=== PATIENT | female | born 1965 | race Caucasian/White ===

== ENCOUNTER 2018-11-16 20:08 | Emergency (ER) | payer OTHER ==
[~2018-11-16] VITALS: Ht 162.6 cm; Wt 135.2 kg
[2018-11-16 20:20] VITALS: BP 143/91
[2018-11-16 21:50] LABS: ABSOLUTE NEUTROPHILS 6.3 thou/uL (1.4-8.2); BASOPHILS 1.2 % (0.0-2.0); EOSINOPHILS 3.5 % (0.0-3.0); HEMATOCRIT 40.5 % (37.0-47.0); HEMOGLOBIN 13.4 gm/dL (12.0-15.0); LYMPHOCYTES 30.7 % (24.0-44.0); MCH 27.1 pg (26.0-34.0); MCV 82.1 fL (80.0-100.0); MONOCYTES 6.5 % (1.0-8.0); PLATELET COUNT 332 thou/uL (150-400); POLYS 58.1 % (36.0-66.0); RBC 4.93 mil/uL (4.20-5.00); RDW 14.1 % (10.5-14.5); WBC 10.9 thou/uL (4.0-11.0)
[2018-11-16 22:00] LABS: CREATININE 0.6 mg/dL (0.6-1.0); POTASSIUM 4.4 mmol/L (3.5-5.1)
[2018-11-16 22:03] LABS: URIC ACID* 1.9 mg/dL (2.6-7.2)
[2018-11-16] MEDS ORDERED: MOBIC15 MG PO (22:07)
[2018-11-16] MEDS ORDERED: NORCO 5-325 TA1 EAC1 PO (22:07)
[2018-11-16] MEDS ORDERED: KEFLEX500 M1 PO (22:10)
[2018-11-16] MEDS ORDERED: INDOMETHACIN 2525 MG PO (22:15)
[2018-11-16] MEDS ORDERED: COLCHICINE0.6 MG PO (22:17)
== END 2018-11-16 22:25 | disposition home or self-care (01) ==
LOC: ER 20:08
PROVIDERS: Physician Assistant
DX: M11.271 Other chondrocalcinosis, right ankle and foot (principal); L53.9 Erythematous condition, unspecified; J44.9 Chronic obstructive pulmonary disease, unspecified; E11.9 Type 2 diabetes mellitus without complications

== ENCOUNTER 2018-11-19 07:38 | Emergency (ER) | payer OTHER ==
[~2018-11-19] VITALS: Ht 162.6 cm; Wt 135.2 kg
[~2018-11-19 07:38] MED LIST: COLCHICINE0.6 MG PO; INDOMETHACIN 2525 MG PO; KEFLEX500 M1 PO; MOBIC15 MG PO; NORCO 5-325 TA1 EAC1 PO
[2018-11-19 07:39] VITALS: BP 122/82
[2018-11-19] MEDS ORDERED: NORCO 5-325 TA1 EAC1 PO (08:18)
== END 2018-11-19 08:50 | disposition home or self-care (01) ==
LOC: ER 07:38
DX: M72.2 Plantar fascial fibromatosis (principal); M21.41 Flat foot [pes planus] (acquired), right foot; M21.42 Flat foot [pes planus] (acquired), left foot; J44.9 Chronic obstructive pulmonary disease, unspecified; E11.9 Type 2 diabetes mellitus without complications; Z86.718 Personal history of other venous thrombosis and embolism

== ENCOUNTER 2018-12-06 09:06 | Emergency (ER) | payer OTHER ==
[~2018-12-06] VITALS: Ht 162.6 cm; Wt 131.1 kg
[2018-12-06 09:20] VITALS: BP 153/89
== END 2018-12-06 09:45 | disposition home or self-care (01) ==
LOC: ER 09:06
DX: M79.671 Pain in right foot (principal); J44.9 Chronic obstructive pulmonary disease, unspecified; E11.9 Type 2 diabetes mellitus without complications; Z47.2 Encounter for removal of internal fixation device

== ENCOUNTER 2020-01-11 09:44 | Emergency (ER) | payer OTHER ==
[~2020-01-11] VITALS: Ht 154.9 cm; Wt 134.3 kg
[2020-01-11 11:58] VITALS: BP 117/89
== END 2020-01-11 11:59 | disposition home or self-care (01) ==
LOC: ER 09:44
DX: M79.602 Pain in left arm (principal); J44.9 Chronic obstructive pulmonary disease, unspecified; E11.9 Type 2 diabetes mellitus without complications; Z79.899 Other long term (current) drug therapy

== ENCOUNTER 2020-10-02 17:47 | Emergency (ER) | payer BC, OTHER ==
[~2020-10-02] VITALS: Ht 162.6 cm; Wt 133.8 kg
[2020-10-02 17:52] VITALS: BP 144/78
[2020-10-02] MEDS ORDERED: DOXYCYCLINE 10100 MG PO (18:41)
[2020-10-02] MEDS ORDERED: HYDROCODON-ACE1 EAC7 PO (18:41)
== END 2020-10-02 18:42 | disposition home or self-care (01) ==
LOC: ER 17:47
DX: N61.1 Abscess of the breast and nipple (principal); J45.909 Unspecified asthma, uncomplicated; J44.9 Chronic obstructive pulmonary disease, unspecified; E11.9 Type 2 diabetes mellitus without complications; Z98.890 Other specified postprocedural states; Z72.89 Other problems related to lifestyle

== ENCOUNTER 2020-10-04 15:20 | Emergency (ER) | payer BC, OTHER ==
[~2020-10-04] VITALS: Ht 162.6 cm; Wt 133.8 kg
[~2020-10-04 15:20] MED LIST changes: +DOXYCYCLINE 10100 MG PO; +HYDROCODON-ACE1 EAC7 PO
[2020-10-04 17:54] LABS: BASOPHILS 0.4 % (0.0-2.0); EOSINOPHILS 1.9 % (0.0-3.0); HEMOGLOBIN 14.7 gm/dL (12.0-15.0); LYMPHOCYTES 26.8 % (24.0-44.0); MCH 29.2 pg (26.0-34.0); MCHC 33.5 g/dL (28.0-37.0); MCV 87.2 fL (80.0-100.0); MONOCYTES 7.3 % (1.0-8.0); PLATELET COUNT 336 thou/uL (150-400); POLYS 63.6 % (36.0-66.0); RBC 5.05 mil/uL (4.20-5.00); RDW 13.1 % (10.5-14.5); WBC 9.5 thou/uL (4.0-11.0)
[2020-10-04 18:06] LABS: CREATININE 0.7 mg/dL (0.6-1.0); POTASSIUM 4.5 mmol/L (3.5-5.1)
[2020-10-04] MEDS ORDERED: IBU800 MG PO (19:10)
[2020-10-04 19:12] VITALS: BP 152/100
--- NOTE | 2020-10-05 07:11 | EKG ---
[facility] [place] [address] ELECTROCARDIOGRAM REPORT Name: DANIEL OLIVARES [id number] Admission: 10/04/20 Attend Phys: Discharge: 10/04/20 Date of : 69 Report #: [id number] [facility] ED Test Date: 2020-10-04 Test Time: 17:07:58 Pat Name: DANIEL OLIVARES Department: Room: Gender: F [employer] Maker: : 1965 Requested By: Franco Fam Order Number: [id number] MD: Ted Chance Measurements Intervals Purdin Rate: 90 P: 1 NM: 159 QRS: -17 QRSD: 90 T: -13 QT: 350 QTc: 429 Interpretive Statements Sinus rhythm Borderline left axis deviation Low voltage, precordial leads Borderline T abnormalities, inferior leads No previous ECG available for comparison Electronically Signed On 10-05-2020 7:10:56 CDT by Ted Chance [email or web address] <ELECTRONICALLY SIGNED> By: Ted Chance MD, MERGED WITH [facility] 10/05/20 0710 1707 1707 Ted Chance MD, FACC /EPI
== END 2020-10-04 19:12 | disposition home or self-care (01) ==
LOC: ER 15:20
PROVIDERS: Nurse Practitioner
DX: N61.1 Abscess of the breast and nipple (principal); Z01.818 Encounter for other preprocedural examination; E11.9 Type 2 diabetes mellitus without complications; J44.9 Chronic obstructive pulmonary disease, unspecified; Z79.2 Long term (current) use of antibiotics; Z79.899 Other long term (current) drug therapy

== ENCOUNTER 2020-10-16 17:48 | Emergency (ER) | payer BC, OTHER ==
[~2020-10-16] VITALS: Ht 162.6 cm; Wt 134.7 kg
[~2020-10-16 17:48] MED LIST changes: +IBU800 MG PO
[2020-10-16] MEDS ORDERED: PREDNISONE 10 M10 M1 PO (19:34)
[2020-10-16] MEDS ORDERED: CORTIZONE-10 PL28 GM TOP (19:34)
[2020-10-16] MEDS ORDERED: FAMOTIDINE 20 M20 MG PO (19:34)
[2020-10-16 19:45] VITALS: BP 140/88
== END 2020-10-16 19:45 | disposition home or self-care (01) ==
LOC: ER 17:48
DX: L50.0 Allergic urticaria (principal); J44.9 Chronic obstructive pulmonary disease, unspecified; E11.9 Type 2 diabetes mellitus without complications; Z72.89 Other problems related to lifestyle

== ENCOUNTER 2020-10-18 17:16 | Emergency (ER) | payer BC, OTHER ==
[~2020-10-18] VITALS: Ht 162.6 cm; Wt 133.8 kg
[~2020-10-18 17:16] MED LIST changes: +CORTIZONE-10 PL28 GM TOP; +FAMOTIDINE 20 M20 MG PO; +PREDNISONE 10 M10 M1 PO
[2020-10-19 00:15] LABS: HEMATOCRIT 39.2 % (37.0-47.0); HEMOGLOBIN 13.4 gm/dL (12.0-15.0); MCH 29.4 pg (26.0-34.0); MCHC 34.1 g/dL (28.0-37.0); MCV 86.3 fL (80.0-100.0); RBC 4.55 mil/uL (4.20-5.00); RDW 13.2 % (10.5-14.5); WBC 11.3 thou/uL (4.0-11.0)
[2020-10-19 00:19] LABS: CALCIUM 8.2 mg/dL (8.5-10.1); CREATININE 0.7 mg/dL (0.6-1.0)
[2020-10-19 00:26] LABS: ALBUMIN 2.9 g/dL (3.4-5.0); TOTAL BILIRUBIN 0.7 mg/dL (0.2-1.0); TOTAL PROTEIN 6.1 g/dL (6.4-8.2)
[2020-10-19 01:20] VITALS: BP 117/74
== END 2020-10-19 02:19 | disposition home or self-care (01) ==
LOC: ER 17:16
PROVIDERS: Nurse Practitioner Family
DX: R21 Rash and other nonspecific skin eruption (principal); T78.40XA Allergy, unspecified, initial encounter; J44.9 Chronic obstructive pulmonary disease, unspecified; E11.9 Type 2 diabetes mellitus without complications; Z79.899 Other long term (current) drug therapy; Z98.890 Other specified postprocedural states; Y92.89 Other specified places as the place of occurrence of the external cause

== ENCOUNTER 2020-10-20 18:42 | Emergency (ER) | payer BC, OTHER ==
[~2020-10-20] VITALS: Ht 162.6 cm; Wt 133.8 kg
[2020-10-20 19:02] VITALS: BP 146/76
== END 2020-10-20 19:50 | disposition home or self-care (01) ==
LOC: ER 18:42
DX: R21 Rash and other nonspecific skin eruption (principal); J44.9 Chronic obstructive pulmonary disease, unspecified; E11.9 Type 2 diabetes mellitus without complications

== ENCOUNTER 2021-03-28 22:55 | Emergency (ER) | payer BC, OTHER ==
[~2021-03-28] VITALS: Ht 162.6 cm; Wt 131.5 kg
[2021-03-29] MEDS ORDERED: DOXYCYCLINE 10100 MG PO (01:16)
[2021-03-29 01:30] VITALS: BP 132/77
[2021-03-29] MEDS ORDERED: PROAIR HFA8.5 GM INH (01:52)
== END 2021-03-29 01:30 | disposition home or self-care (01) ==
LOC: ER 22:55
DX: N89.8 Other specified noninflammatory disorders of vagina (principal); J44.9 Chronic obstructive pulmonary disease, unspecified; E11.9 Type 2 diabetes mellitus without complications

== ENCOUNTER 2021-04-05 17:20 | Emergency (ER) | payer BC, OTHER ==
[~2021-04-05] VITALS: Ht 162.6 cm; Wt 133.8 kg
[~2021-04-05 17:20] MED LIST changes: +PROAIR HFA8.5 GM INH
[2021-04-05 17:52] LABS: URINE BILIRUBIN NEGATIVE (Negative); URINE BLOOD 2+ (Negative); URINE CLARITY CLOUDY; URINE COLOR YELLOW; URINE GLUCOSE-RANDOM* 3+ (Negative); URINE KETONES TRACE (Negative); URINE LEUKOCYTES-REFLEX TRACE (Negative); URINE NITRITE-REFLEX NEGATIVE (Negative); URINE PROTEIN (DIPSTICK) NEGATIVE (Negative); URINE SPECIFIC GRAVITY 1.025 (1.005-1.035); URINE UROBILINOGEN 0.2 E.U./dl (0.2-1.0)
[2021-04-05 18:04] LABS: SQUAMOUS 4-10 Moderate /LPF (0-3)
[2021-04-05 18:05] LABS: BACTERIA-REFLEX >30 Many /HPF (None Seen); CASTS None Seen /LPF (None Seen); CRYSTALS None Seen /LPF (None Seen); URINE WBC-REFLEX >25 Many /HPF (0-5)
[2021-04-05] MEDS ORDERED: CEPHALEXIN500 MG PO (19:13)
[2021-04-05 19:42] VITALS: BP 135/78
== END 2021-04-05 19:42 | disposition home or self-care (01) ==
LOC: ER 17:20
PROVIDERS: Nurse Practitioner Family
DX: A59.01 Trichomonal vulvovaginitis (principal); N39.0 Urinary tract infection, site not specified; J45.909 Unspecified asthma, uncomplicated; J44.9 Chronic obstructive pulmonary disease, unspecified; E11.9 Type 2 diabetes mellitus without complications; Z98.890 Other specified postprocedural states; Z79.51 Long term (current) use of inhaled steroids; Z79.899 Other long term (current) drug therapy